=== PATIENT | male | born 1985 | race Hispanic/Latino ===

== ENCOUNTER 2022-01-23 18:20 | Emergency (ER) | payer OTHER, MEDICARE ==
[~2022-01-23] VITALS: Ht 177.8 cm; Wt 90.7 kg
[2022-01-23 19:09] LABS: BASOPHILS % (AUTO) 0.5 % (0.0-5.0); EOSINOPHILS % (AUTO) 0.9 % (0.0-8.0); HEMATOCRIT 44.9 % (42-54); LYMPHOCYTES % (AUTO) 43.6 % (21.0-51.0); MEAN CORPUSCULAR HEMOGLOBIN 33.1 pg (27.0-33.0); MEAN CORPUSCULAR HGB CONC 33.9 g/dL (32.0-36.0); MEAN CORPUSCULAR VOLUME 97.8 fL (79-99); MONOCYTES % (AUTO) 16.5 % (3.0-13.0); NEUTROPHILS % (AUTO) 38.3 % (40.0-77.0); PLATELET COUNT (AUTO) 143 K/uL (130-400); RED BLOOD CELL COUNT(AUTO) 4.59 MIL/uL (4.50-6.20); RED CELL DISTRIBUTION WIDTH 11.8 % (11.0-15.5); WHITE BLOOD COUNT (AUTO) 4.4 K/uL (4.8-10.8)
[2022-01-23 19:19] LABS: CARBON DIOXIDE 24 mmol/L (21-32); CHLORIDE 104 mmol/L (101-111); CREATININE 0.6 mg/dL (0.5-1.5); GLOMERULAR FILTR. RATE CALC 164 mL/min (>60); GLUCOSE,RANDOM 99 mg/dL (70-105); POTASSIUM 4.1 mmol/L (3.5-5.1); SODIUM SERUM 140 mmol/L (136-145); UREA NITROGEN, BLOOD 12 mg/dL (7-18)
[2022-01-23 19:25] LABS: ALANINE AMINOTRANSFERASE 92 U/L (12-78); ALBUMIN 4.5 g/dL (3.5-5.0); ASPARTATE AMINOTRANSFERASE 45 U/L (10-37); BILIRUBIN,TOTAL 0.3 mg/dL (0.2-1.0); CREATINE KINASE, TOTAL 233 U/L (21-232); TOTAL PROTEIN, SERUM 8.3 g/dL (6.0-8.3)
[2022-01-23 19:27] LABS: ACETAMINOPHEN < 1 mcg/mL (10-29); SALICYLATE < 2.8 mg/dL (2.8-20.0)
[2022-01-23 19:28] LABS: ALCOHOL, BLOOD 308 mg/dL (0-10)
[2022-01-23] MEDS ORDERED: 0.9%NACL 1000ML 1,000 ML IV ONE (21:00)
[2022-01-23 21:17] LABS: APPEARANCE,URINE CLEAR (CLEAR); BILIRUBIN,URINE NEGATIVE (NEGATIVE); COLOR,URINE YELLOW (YELLOW); GLUCOSE, URINE (UA) NEGATIVE (NEGATIVE); KETONES,URINE NEGATIVE (NEGATIVE); LEUKOCYTE ESTERASE ,URINE NEGATIVE (NEGATIVE); NITRATE,URINE NEGATIVE (NEGATIVE); OCCULT BLOOD,URINE NEGATIVE (NEGATIVE); PROTEIN,URINE NEGATIVE (NEGATIVE); UROBILINOGEN,URINE 0.2 mg/dL (0.2-1.0)
[2022-01-23 21:24] LABS: AMPHET/METH SCREEN,URINE NEGATIVE (NEGATIVE); BARBITURATE SCREEN, URINE NEGATIVE (NEGATIVE); BENZODIAZEPINES SCREEN,URINE NEGATIVE (NEGATIVE); CANNABINOID SCREEN,URINE NEGATIVE (NEGATIVE); COCAINE SCREEN,URINE NEGATIVE (NEGATIVE); OPIATE SCREEN,URINE NEGATIVE (NEGATIVE); PHENCYCLIDINE SCREEN,URINE NEGATIVE (NEGATIVE)
[2022-01-24 06:58] VITALS: BP 125/82
== END 2022-01-24 07:06 | disposition home or self-care (01) ==
LOC: EDH 18:20
DX: F10.10 Alcohol abuse, uncomplicated (principal); Z20.822 Contact with and (suspected) exposure to COVID-19
CPT/HCPCS: 36415 ×2; 80053; 80305; 81003; 82550; 85025; 87635; 93005; 99284; C9803; G0480; J7030; G0481

== ENCOUNTER 2024-11-18 10:58 | Emergency (ER) | payer OTHER, MEDICARE ==
[~2024-11-18] VITALS: Ht 177.8 cm; Wt 86.2 kg
--- NOTE | 2024-11-18 11:30 | ERN ---
General Chief Complaint: Medical Clearance Stated Complaint: PSYCHIATRIC EVAL Time Seen by MD: 10:58 Time Seen by Midlevel: 10:58 Source: patient History of Present Illness Initial Comments Patient was sent over from [facility] for medical clearance after being homicidal with his mom. He does admit to drinking alcohol today. Denies any concerns at this time. Allergies: Coded Allergies: No Known Allergies (Unverified Allergy, Unknown, 01/23/22) Past Medical History Past Medical History: Unknown Past Surgical History: Unknown ROS Dictation CONSTITUTIONAL: Negative except for HPI HEAD/FACE: Negative except for HPI EENT: Negative except for HPI RESPIRATORY: Negative except for HPI GASTROINTESTINAL/ABDOMINAL: Negative except for HPI GENITOURINARY: Negative except for HPI MUSCULOSKELETAL: Negative except for HPI INTEGUMENTARY: Negative except for HPI NEUROLOGICAL/PSYCH: Negative except for HPI HEMATOLOGIC/LYMPHATIC: Negative except for HPI All Systems Negative, Except as noted above. 13 point review of systems assessed and all negative except for above. Physical Exam Physical Exam Dictation PHYSICAL EXAM: GENERAL: alert,, awake oriented x 3 HEENT: EOMI, Sclera non icteric, moist mucosa NECK: Supple, no JVD, trachea midline LUNGS: Clear breath sounds bilaterally. No wheezes HEART: Regular rate and rhythm. Normal S1 and S2, without murmurs ABD: Abdomen soft, nontender. Bowel sounds present EXT: No clubbing or cyanosis, NEURO: Alert and oriented to person, follows commands Results Laboratory and Microbiology Lab and Micro Result Laboratory Tests Test 11/18/24 11:36 11/18/24 11:39 Urine Color LIGHT-YELLOW (YELLOW) Urine Appearance CLEAR (CLEAR) Urine pH 7.0 (5.0-8.0) Urine Specific [place] 1.014 (1.001-1.031) Urine Protein 30 mg/dL (NEGATIVE) H Urine Glucose (UA) NEGATIVE mg/dL (NEGATIVE) Urine Ketones NEGATIVE mg/dL (NEGATIVE) Urine Occult Blood NEGATIVE (NEGATIVE) Urine Nitrate NEGATIVE (NEGATIVE) Urine Bilirubin NEGATIVE mg/dL (NEGATIVE) Urine Urobilinogen 0.2 mg/dL (0.2-1.0) Urine Leukocyte Esterase NEGATIVE Lena/uL Urine RBC 0-1 /HPF (0-1) Urine WBC 0-1 /HPF (0-1) Urine Bacteria None /HPF (None Seen) Urine Opiates Screen NEGATIVE (NEGATIVE) Urine Barbiturates Screen NEGATIVE (NEGATIVE) Urine Phencyclidine Screen NEGATIVE (NEGATIVE) Urine Amphetamines Screen NEGATIVE (NEGATIVE) Urine Benzodiazepines Screen NEGATIVE (NEGATIVE) Urine Cocaine Screen NEGATIVE (NEGATIVE) Urine Marijuana (THC) Screen NEGATIVE (NEGATIVE) White Blood Count 5.9 K/uL (4.8-10.8) Red Blood Count 4.70 MIL/uL (4.50-6.20) Hemoglobin 14.6 g/dL (14.0-18.0) Hematocrit 42.9 % (42-54) Mean Corpuscular Volume 91.3 fL (79-99) Mean Corpuscular Hemoglobin 31.1 pg (27.0-33.0) Mean Corpuscular Hemoglobin Concent 34.0 g/dL (32.0-36.0) Red Cell Distribution Width 15.5 % (11.0-15.5) Platelet Count 213 K/uL (130-400) Mean Platelet Volume 9.0 fL (7.5-10.5) Immature Granulocyte % (Auto) 0.3 % (0-1) Neutrophils (%) (Auto) 65.2 % (40.0-77.0) Lymphocytes (%) (Auto) 15.7 % (21.0-51.0) L Monocytes (%) (Auto) 17.0 % (3.0-13.0) H Eosinophils (%) (Auto) 0.8 % (0.0-8.0) Basophils (%) (Auto) 1.0 % (0.0-5.0) Neutrophils # (Auto) 3.9 K/uL (1.8-7.7) Lymphocytes # (Auto) 0.9 K/uL (1.0-4.8) L Monocytes # (Auto) 1.0 K/uL (0.1-1.0) Eosinophils # (Auto) 0.05 K/uL (0.00-0.70) Basophils # (Auto) 0.06 K/uL (0.00-0.20) Absolute Immature Granulocyte (auto 0.02 K/uL (0-1) Nucleated Red Blood Cells 0.0 % (0.0-0.19) White Cell Morphology Comment See comments Sodium Level 143 mmol/L (136-145) Potassium Level 3.6 mmol/L (3.5-5.1) Chloride Level 102 mmol/L (101-111) Carbon Dioxide Level 30 mmol/L (21-32) Blood Urea Nitrogen 9 mg/dL (7-18) Creatinine 0.6 mg/dL (0.5-1.3) Glomerular Filtration Rate Calc 128 mL/min (>90) Random Glucose 107 mg/dL (70-105) H Total Calcium 8.9 mg/dL (8.5-10.1) Total Creatine Kinase 535 U/L (21-232) #*H Salicylates Level < 2.8 mg/dL (2.8-20.0) L Acetaminophen Level < 1 mcg/mL (10-29) L Serum Alcohol 77 mg/dL (0-10) H Labs Reviewed?: Yes MDM MDM: Patient was sent over from [facility] for medical clearance after being homicidal with his mom. He does admit to drinking alcohol today. Denies any concerns at this time. On physical examination patient is in no acute distress. He was able to answer questions appropriately. His vital signs are stable and he is nontoxic appearing. CBC chemistries are stable. His alcohol it was 77. His CK slightly elevated in the 500s. Patient was given1 L of IV fluids. A repeat alcohol level and CK was ordered however patient is refusing to have a repeat blood draw. Patient was observed in the ER for over4 hours and has remained stable and asymptomatic. Patient is medically cleared at this time and will be sent back to [facility] for further observation and management. PD has been contacted for transport. Differential diagnosis: Medical clearance, alcohol intoxication, electrolyte abnormality, dehydration There are no social concerns with this patient. Prescription drug management Prescriptions will include: None Medical management and examination interpretation discussions were had by me with other qualified healthcare professionals as indicated for the patient's care. ED Course Orders Procedure Category Date Status Time Basic Metabolic Panel LAB 11/18/24 Complete 11:13 Cbc With Differential LAB 11/18/24 Complete 11:13 Urinalysis Profile LAB 11/18/24 Complete 11:13 Drug Screen Urine LAB 11/18/24 Complete 11:13 Alcohol, Blood LAB 11/18/24 Complete 11:13 12 Lead Ekg Tracing- EKG 11/18/24 Logged Technical 11:28 Acetaminophen LAB 11/18/24 Complete 11:13 Creatine Kinase, Total LAB 11/18/24 Complete 11:13 Salicylate LAB 11/18/24 Complete 11:13 0.9%Nacl 1000ml (Ns PHA 11/18/24 Complete 1000ml) 12:30 Creatine Kinase, Total LAB 11/18/24 Logged 13:41 Alcohol, Blood LAB 11/18/24 Logged 13:41 Current Medications Medications (Trade) Dose Ordered Sig/Humble Route PRN Reason Start Time Stop Time Status Last Admin Dose Admin Sodium Chloride 1,000 ml @ 0 mls/hr ONCE ONCE IV 11/18/24 12:30 11/18/24 12:31 DC Vital Signs Date Time Temp Pulse Resp B/P (MAP) Pulse Ox O2 Delivery O2 Flow Rate FiO2 11/18/24 11:22 98.4 113 20 148/96 96 Room Air 0 DX & DISP Disposition: Discharge Departure Impression: Primary Impression: Medical clearance for psychiatric admission Condition: Stable Referrals: NONE (PCP) Time of Disposition: 15:22 I have reviewed the case, and I agree with, Diagnosis and Plan I performed the substantive portion of the visit. I have reviewed and personally made and approve the management plan that is documented in the note b y myself or the [facility]. I acknowledge for responsibility for the patient's management plan. MARVIN OROZCO Nov 18, 2024 11:30
[2024-11-18 11:46] LABS: BASOPHILS # (AUTO) 0.06 K/uL (0.00-0.20); EOSINOPHILS # (AUTO) 0.05 K/uL (0.00-0.70); EOSINOPHILS % (AUTO) 0.8 % (0.0-8.0); HEMATOCRIT 42.9 % (42-54); IMMATURE GRANULOCYTE ABSOLUTE 0.02 K/uL (0-1); LYMPHOCYTES # (AUTO) 0.9 K/uL (1.0-4.8); LYMPHOCYTES % (AUTO) 15.7 % (21.0-51.0); MEAN CORPUSCULAR HEMOGLOBIN 31.1 pg (27.0-33.0); MEAN CORPUSCULAR VOLUME 91.3 fL (79-99); NEUTROPHILS # (AUTO) 3.9 K/uL (1.8-7.7); NEUTROPHILS % (AUTO) 65.2 % (40.0-77.0); PLATELET COUNT (AUTO) 213 K/uL (130-400); RED CELL DISTRIBUTION WIDTH 15.5 % (11.0-15.5); WHITE BLOOD COUNT (AUTO) 5.9 K/uL (4.8-10.8)
[2024-11-18 11:55] LABS: CARBON DIOXIDE 30 mmol/L (21-32); CHLORIDE 102 mmol/L (101-111); CREATININE 0.6 mg/dL (0.5-1.3); GLOMERULAR FILTR. RATE CALC 128 mL/min (>90); GLUCOSE,RANDOM 107 mg/dL (70-105); POTASSIUM 3.6 mmol/L (3.5-5.1); SODIUM SERUM 143 mmol/L (136-145); UREA NITROGEN, BLOOD 9 mg/dL (7-18)
[2024-11-18 12:04] LABS: APPEARANCE,URINE CLEAR (CLEAR); BILIRUBIN,URINE NEGATIVE (NEGATIVE); COLOR,URINE LIGHT-YELLOW (YELLOW); GLUCOSE, URINE (UA) NEGATIVE (NEGATIVE); KETONES,URINE NEGATIVE (NEGATIVE); LEUKOCYTE ESTERASE ,URINE NEGATIVE Leu/uL (NEGATIVE); NITRATE,URINE NEGATIVE (NEGATIVE); OCCULT BLOOD,URINE NEGATIVE (NEGATIVE); PROTEIN,URINE 30 mg/dL (NEGATIVE); UROBILINOGEN,URINE 0.2 mg/dL (0.2-1.0)
[2024-11-18 12:08] LABS: ALCOHOL, BLOOD 77 mg/dL (0-10)
[2024-11-18 12:10] LABS: ADD UA MICROSCOPIC YES
[2024-11-18 12:13] LABS: ACETAMINOPHEN < 1 mcg/mL (10-29); CREATINE KINASE, TOTAL 535 U/L (21-232); SALICYLATE < 2.8 mg/dL (2.8-20.0)
[2024-11-18 12:21] LABS: MUCUS,URINE RARE LPF (None Seen); RBC,URINE 0-1 /HPF (0-1); WBC,URINE 0-1 /HPF (0-1)
[2024-11-18 12:30] LABS: AMPHET/METH SCREEN,URINE NEGATIVE (NEGATIVE); BARBITURATE SCREEN, URINE NEGATIVE (NEGATIVE); BENZODIAZEPINES SCREEN,URINE NEGATIVE (NEGATIVE); CANNABINOID SCREEN,URINE NEGATIVE (NEGATIVE); COCAINE SCREEN,URINE NEGATIVE (NEGATIVE); OPIATE SCREEN,URINE NEGATIVE (NEGATIVE); PHENCYCLIDINE SCREEN,URINE NEGATIVE (NEGATIVE)
[2024-11-18] MEDS ORDERED: 0.9%NACL 1000ML 1,000 ML IV ONE (12:30)
--- NOTE | 2024-11-18 12:41 | NUR ---
PT REFUSING IV AND IV FLUIDS BECOMING AGRESSIVE, WILL NOT GET INTO HIS ASSIGNED BED, PROVIDER NOTIFIED.
--- NOTE | 2024-11-18 13:53 | NUR ---
TALKED TO PT AGAIN, STILL REFUSING IV, NOT WANTING TO GET INTO HIS BED, PACING IN HALLWAY IN FRONT OF HIS BED, REFUSING IV FLUIDS.
--- NOTE | 2024-11-18 14:00 | NUR ---
REFUSED REPEAT LAB DRAW
--- NOTE | 2024-11-18 14:58 | NUR ---
GAVE REPORT TO MARIO ALBERTO AT [facility] IN REGARDS TO PT.
--- NOTE | 2024-11-18 15:05 | NUR ---
CALLED [facility] FOR TRANSPORT TO [employer] FOR BOYS DUE TO SECTION. WORKER REPORTS, HE WILL CALL ME BACK AFTER SPEAKING TO DRY CLEANER APPRENTICE.
--- NOTE | 2024-11-18 15:20 | NUR ---
SPOKE TO OFFICER KRISTY WITH [facility] AND HE REPORTS THERE ARE NO DEPUTIES AVAILABLE AT THIS TIME FOR PT TRANSPORT.
--- NOTE | 2024-11-18 15:41 | NUR ---
SPOKE TO [facility] WATERS, DISPATCH REPORTS THEY SPOKE TO THEIR HEALTH SANITARIAN AND HE SAID, THEY DO NOT DO RIDES.
--- NOTE | 2024-11-18 16:05 | NUR ---
PER SONJA WATERS, ACCESS LEAD REPORTED THAT THEY DO NOT DO RIDES OR HAVE A CONSTABLE AT THE MOMENT.
--- NOTE | 2024-11-18 16:45 | NUR ---
SPOKE TO [facility] TO SET UP TRANSPORT FOR TRANSFER.
[2024-11-18 17:05] VITALS: BP 156/92; PULSE 92; RESP 20; TEMP 98.6; O2SAT 99
--- NOTE | 2024-11-18 18:47 | NUR ---
TRANSFERRED TO BEHAVIORAL BY [facility]
--- NOTE | 2024-11-19 08:45 | EKG ---
[facility] Test Date: 2024-11-18 Test Time: 11:40:53 Pat Name: MARVIN ESCOBAR Department: ED Room: Gender: M [employer] [place]: [phone] 1985 Requested By: FERNANDA GRIMM Order Number: [id number] Reading MD: William Romero Measurements Intervals [place] Rate: 95 P: 52 NV: 163 QRS: 53 QRSD: 87 T: -28 QT: 361 QTc: 453 Interpretive Statements Sinus rhythm Nonspecific T abnormalities, diffuse leads Compared to ECG 01/23/2022 19:01:34 T-wave abnormality now present Electronically Signed On 11-19-2024 20:16:13 SECURITY SPECIALIST by William Romero Please click the below link to view image of tracing.
== END 2024-11-18 18:50 | disposition short-term general hospital (02) ==
LOC: EDH 10:58
DX: Z00.8 Encounter for other general examination (principal)
CPT/HCPCS: 99285; 82550; 80048; 80305; 85025; 36415; 93005; 81001; G0481